=== PATIENT | male | born 1995 | race African-American/Black ===

== ENCOUNTER 2018-01-25 02:49 | Emergency (ER) | payer SELFPAY ==
[2018-01-25 02:54] VITALS: BP 147/90
[2018-01-25] MEDS ORDERED: KETOROLAC TROMETHAMINE 60 MG/2 ML SDV IM ONE (04:29)
--- NOTE | 2018-01-25 04:34 | ER Document Report ---
ED General - General Chief Complaint: Toothache Stated Complaint: TOOTHACHE Time Seen by Provider: 01/25/18 04:25 Mode of Arrival: Ambulatory Information source: Patient Notes: 22-year-old male presents emergency department with complaints of dental pain. He is having pain at tooth #32. Patient states that he has been having intermittent pain for months. Patient has not seen a dentist. Patient denies any trauma or injury. Patient denies any difficulty swallowing or difficulty opening his mouth. TRAVEL OUTSIDE OF THE [place] IN LAST 30 DAYS: No - HPI Onset/Duration: Gradual Quality of pain: Achy Severity: Mild Associated symptoms: None Exacerbated by: Denies Relieved by: Denies Similar symptoms previously: Yes Recently seen / treated by doctor: No - Related Data Allergies/Adverse Reactions: No Known Allergies Allergy (Verified 12/30/13 07:40) Past Medical History - General Information source: Patient - Social History Smoking Status: Current Every Day Smoker Chew tobacco use (# tins/day): No Frequency of alcohol use: None Drug Abuse: None Family History: None, Reviewed & Not Pertinent Patient has suicidal ideation: No Patient has homicidal ideation: No Renal/ Medical History: Denies: Hx Peritoneal Dialysis GI Medical History: Reports: Hx Gastroesophageal Reflux Disease - Immunizations Immunizations up to date: Yes Hx Diphtheria, Pertussis, Tetanus Vaccination: Yes Review of Systems - Review of Systems Constitutional: No symptoms reported EENT: Dental problem Cardiovascular: No symptoms reported Respiratory: No symptoms reported Gastrointestinal: No symptoms reported Genitourinary: No symptoms reported Male Genitourinary: No symptoms reported Musculoskeletal: No symptoms reported Skin: No symptoms reported Hematologic/Lymphatic: No symptoms reported Neurological/Psychological: No symptoms reported -: Yes All other systems reviewed and negative Physical Exam - Vital signs Vitals: Temp Pulse Resp BP Pulse Ox 98.2 F 62 16 147/90 H 99 01/25/18 02:53 01/25/18 02:53 01/25/18 02:53 01/25/18 02:53 01/25/18 02:53 Interpretation: Normal - Notes Notes: PHYSICAL EXAMINATION: GENERAL: Well-appearing, well-nourished and in no acute distress. HEAD: Atraumatic, normocephalic. EYES: Pupils equal round and reactive to light, extraocular movements intact, sclera anicteric, conjunctiva are normal. ENT: Nares patent, oropharynx clear without exudates. Moist mucous membranes. Dental tenderness to palpation of tooth number 32. No area of fluctuance. No trismus. NECK: Normal range of motion, supple without lymphadenopathy LUNGS: Breath sounds clear to auscultation bilaterally and equal. No wheezes rales or rhonchi. HEART: Regular rate and rhythm without murmurs ABDOMEN: Soft, nontender, nondistended abdomen. No guarding, no rebound. No masses appreciated. Musculoskeletal: Normal range of motion, no pitting or edema. No cyanosis. NEUROLOGICAL: Cranial nerves grossly intact. Normal speech, normal gait. Normal sensory, motor exams PSYCH: Normal mood, normal affect. SKIN: Warm, Dry, normal turgor, no rashes or lesions noted. Course - Vital Signs Vital signs: Temp Pulse Resp BP Pulse Ox 98.2 F 62 16 147/90 H 99 01/25/18 02:53 01/25/18 02:53 01/25/18 02:53 01/25/18 02:53 01/25/18 02:53 Discharge - Discharge Clinical Impression: Pain, dental Disposition: HOME, SELF-CARE Instructions: Penicillin V K ([facility]), Toothache ([facility]) Prescriptions: Penicillin V Potassium [Penicillin Vk 500 mg Tablet] 500 mg PO BID 10 Days #20 tablet Referrals: AMINATA MOROCHO MD [[facility]] - Follow up as needed
== END 2018-01-25 05:01 | disposition home or self-care (01) ==
LOC: ER 02:49
DX: K08.9 Disorder of teeth and supporting structures, unspecified (principal); F17.200 Nicotine dependence, unspecified, uncomplicated
CPT/HCPCS: 99282; 96372; J1885

== ENCOUNTER 2019-05-10 14:09 | Emergency (ER) | payer SELFPAY ==
--- NOTE | 2019-05-10 15:04 | ER Document Report ---
ED Medical Screen (RME) - General Chief Complaint: Foreign Body Stated Complaint: THUMB INJURY Time Seen by Provider: 05/10/19 15:01 Mode of Arrival: Ambulatory Information source: Patient Notes: 23-year-old male presented to ED for complaint of shooting a nail through his left thumb. He goes in at the fingernail comes out below the below the joint. His bleeding is under control at this time time. His tetanus is not up-to-date and will be done at this time. He states he does vape but not smoke. I have greeted and performed a rapid initial assessment of this patient. A comprehensive ED assessment and evaluation of the patient, analysis of test results and completion of medical decision making process will be conducted by an additional ED providers. TRAVEL OUTSIDE OF THE [place] IN LAST 30 DAYS: No - Related Data Allergies/Adverse Reactions: No Known Allergies Allergy (Verified 05/10/19 15:01) Past Medical History Renal/ Medical History: Denies: Hx Peritoneal Dialysis GI Medical History: Reports: Hx Gastroesophageal Reflux Disease - Immunizations Immunizations up to date: Yes Hx Diphtheria, Pertussis, Tetanus Vaccination: Yes Physical Exam - Vital signs Vitals: Temp Pulse Resp BP Pulse Ox 98.4 F 61 16 150/96 H 100 05/10/19 14:54 05/10/19 14:54 05/10/19 14:54 05/10/19 14:54 05/10/19 14:54 Course - Vital Signs Vital signs: Temp Pulse Resp BP Pulse Ox 98.4 F 61 16 150/96 H 100 05/10/19 14:54 05/10/19 14:54 05/10/19 14:54 05/10/19 14:54 05/10/19 14:54
[2019-05-10 15:38] LABS: ABSOLUTE LYMPHOCYTES (AUTO) 1.5 10^3/uL (0.5-4.7); ABSOLUTE MONOCYTES (AUTO) 0.4 10^3/uL (0.1-1.4); ABSOLUTE NEUT (AUTO) 3.4 10^3/uL (1.7-8.2); BASOPHILS % (AUTO) 0.3 % (0-2); EOSINOPHILS % (AUTO) 0.4 % (0-6); HEMATOCRIT 42.9 % (37.9-51.0); HEMOGLOBIN 14.4 g/dL (13.5-17.0); LYMPHOCYTES % (AUTO) 28.7 % (13-45); MEAN CORPUSCULAR HEMOGLOBIN 28.8 pg (27.0-33.4); MEAN CORPUSCULAR HGB CONC 33.5 g/dL (32.0-36.0); MEAN CORPUSCULAR VOLUME 86 fl (80-97); MONOCYTES % (AUTO) 7.3 % (3-13); PLATELET COUNT 311 10^3/uL (150-450); RED CELL DISTRIBUTION WIDTH 13.7 % (11.5-14.0); SEGMENTED NEUTROPHILS % (AUTO) 63.3 % (42-78); TOTAL CELLS COUNTED % (AUTO) 100 %; WHITE BLOOD COUNT 5.4 10^3/uL (4.0-10.5)
[2019-05-10 16:08] LABS: ALBUMIN 4.6 g/dL (3.5-5.0); ALKALINE PHOSPHATASE 56 U/L (38-126); ANION GAP 9 (5-19); ASPARTATE AMINO TRANSFERASE 21 U/L (17-59); BILIRUBIN,TOTAL 0.3 mg/dL (0.2-1.3); BLOOD UREA NITROGEN 16 mg/dL (7-20); CALCIUM 9.9 mg/dL (8.4-10.2); CARBON DIOXIDE 29 mmol/L (22-30); CHLORIDE 100 mmol/L (98-107); GLUCOSE 86 mg/dL (75-110); POTASSIUM 4.2 mmol/L (3.6-5.0); TOTAL PROTEIN 7.8 g/dL (6.3-8.2)
--- NOTE | 2019-05-10 17:32 | RADIOLOGY REPORT (SQ) ---
EXAM DESCRIPTION: FINGER LEFT COMPLETED DATE/TIME: 05/10/2019 3:35 pm REASON FOR STUDY: Nail through the nail through the joint. COMPARISON: None. NUMBER OF VIEWS: Three views. TECHNIQUE: AP, lateral, and oblique images acquired of the left thumb. LIMITATIONS: None. FINDINGS: MINERALIZATION: Normal. BONES: There is a 2.5 cm metallic object through the 1st distal phalanx. There is no associated disl ocation. SOFT TISSUES: No soft tissue swelling. OTHER: No other finding. IMPRESSION: 2.5 cm metallic object through the 1st distal phalanx. TECHNICAL DOCUMENTATION: JOB ID: [id number] All Rights Reserved Reading location - IP/workstation name: [email or web address]
[2019-05-10 19:34] VITALS: BP 142/68
[2019-05-10] MEDS ORDERED: LIDOCAINE 1% INJ (10 MG/ML) 10 ML MDV INJ ONE (20:37)
[2019-05-10] MEDS ORDERED: AMOXICILLIN TR/POT CLAVULANATE 500-125 MG TAB PO ONE (20:37)
[2019-05-10] MEDS ORDERED: AMOXICILLIN TRIHYDRATE 500 MG CAPSULE PO ONE (20:37)
[2019-05-10] MEDS ORDERED: DIPH/PERTUSS(ACELL)/TETANUS VAC/PF 0.5 ML SYR (>=10YO) IM ONE (20:38)
[2019-05-10] MEDS ORDERED: BUPIVACAINE HCL 0.5 % INJ/PF 30 ML SDV INJ ONE (20:38)
--- NOTE | 2019-05-10 20:39 | ER Document Report ---
ED Foreign Body - General Chief Complaint: Thumb Injury Stated Complaint: THUMB INJURY Time Seen by Provider: 05/10/19 15:01 Mode of Arrival: Ambulatory Notes: Patient is a 23-year-old male that comes emergency department for chief complaint of accidentally shooting a nail through his left thumb, the nail entered through the middle of the fingernail and extending down into the thumb without it coming out the other side. His tetanus is not up-to-date. He denies any other injuries or complaints, he denies any past medical history. TRAVEL OUTSIDE OF THE [place] IN LAST 30 DAYS: No - Related Data Allergies/Adverse Reactions: No Known Allergies Allergy (Verified 05/10/19 15:01) Past Medical History - General Information source: Patient - Social History Smoking Status: Never Smoker Frequency of alcohol use: Rare Drug Abuse: None Lives with: Family Family History: None, Reviewed & Not Pertinent Patient has suicidal ideation: No Patient has homicidal ideation: No Renal/ Medical History: Denies: Hx Peritoneal Dialysis GI Medical History: Reports: Hx Gastroesophageal Reflux Disease Surgical Hx: Negative - Immunizations Immunizations up to date: Yes Hx Diphtheria, Pertussis, Tetanus Vaccination: Yes Review of Systems - Review of Systems Constitutional: No symptoms reported EENT: No symptoms reported Cardiovascular: No symptoms reported Respiratory: No symptoms reported Gastrointestinal: No symptoms reported Genitourinary: No symptoms reported Male Genitourinary: No symptoms reported Musculoskeletal: See HPI Skin: No symptoms reported Hematologic/Lymphatic: No symptoms reported Neurological/Psychological: No symptoms reported Physical Exam - Vital signs Vitals: Temp Pulse Resp BP Pulse Ox 98.4 F 61 16 150/96 H 100 05/10/19 14:54 05/10/19 14:54 05/10/19 14:54 05/10/19 14:54 05/10/19 14:54 - Notes Notes: GENERAL: Alert, interacts well. No acute distress. HEAD: Normocephalic, atraumatic. EYES: Pupils equal, round, and reactive to light. Extraocular movements intact. ENT: Oral mucosa moist, tongue midline. Oropharynx unremarkable. Airway patent. LUNGS: Clear to auscultation bilaterally, no wheezes, rales, or rhonchi. No respiratory distress. HEART: Regular rate and rhythm. No murmur ABDOMEN: Soft, non-tender. Non-distended. EXTREMITIES: Right thumb with puncture wound with the head of a small nail sticking out in the middle of the right thumbnail, there is an abrasion over the DIP as well, I can feel a foreign body along the medial aspect of the thumb along the side which is moderately superficial. Patient still has range of motion of the thumb surprisingly, normal sensation and capillary refill, normal hand exam otherwise. BACK: no cervical, thoracic, lumbar midline tenderness. No saddle anesthesia, normal distal neurovascular exam. NEUROLOGICAL: Alert and oriented x3. Normal speech. Cranial nerves II through XII grossly intact. PSYCH: Normal affect, normal mood. SKIN: Warm, dry, normal turgor. No rashes or lesions noted. Course - Re-evaluation Re-evalutation: X-ray showing superficial nail in the thumb without bony involvement. The nail is sticking out of the right thumbnail, there is an abrasion over the top of the thumb, the nail is embedded into the thumb otherwise. I did discuss with Dr. Carrington. Decision was made after discussion with patient to perform digital block and attempt to remove the nail. Patient was given Augmentin. I did have to cut the tip of the nail up to the area where the nail is embedded into the thumbnail using scissors after digital block was performed and thorough cleansing was performed. After this was performed I was able to get underneath the nail and I was able to remove the nail and one smooth motion. This was examined carefully and there was no evidence of broken nail or retained foreign body. Patient was placed on Augmentin for home, tetanus was updated, discussed wound care, follow-up, and strict return precautions. Discussed again with Dr. Carrington. Patient states appreciation and agreement. - Vital Signs Vital signs: Temp Pulse Resp BP Pulse Ox 98.0 F 72 18 142/68 H 100 05/10/19 19:27 05/10/19 19:27 05/10/19 19:27 05/10/19 19:27 05/10/19 19:27 - Laboratory Result Diagrams: 05/10/19 15:20 05/10/19 15:20 Procedures - Additional Procedures Right thumb foreign body removal Additional Procedures: Other - Right thumb was cleaned thoroughly with Keyon Cleearlene, digital block performed using a total of 6 cc of lidocaine and bupivacaine with excellent results. Unable to pull out the nail because I could not get a good hold on the nail, I had to trim the thumbnail from the edge of the nail up to the middle of the nail in a linear fashion so I could get underneath of the embedded foreign body, grasped with needle drivers, and pull out and once with motion. This was examined and intact without any evidence of break, this indicates there is no retained foreign body now. Patient tolerated this very well. Normal exam otherwise. Cleaned and dressed. Discharge - Discharge Clinical Impression: Foreign body of finger Condition: Stable Disposition: HOME, SELF-CARE Additional Instructions: The foreign body has been removed. Keep area clean, clean with soap and water, apply topical antibiotic to the area. Take antibiotic as prescribed to completion. I recommend [id number] probiotic to avoid diarrhea while taking this. Follow-up with primary care. Return for any signs of infection including developing pain, redness, swelling, discolored discharge, fever, or any other concerning symptoms. Prescriptions: Amox Tr/Potassium Clavulanate [Augmentin 875-125 Tablet] 1 tab PO BID 7 Days #14 tablet Forms: Return to Work
[2019-05-10] MEDS ORDERED: LIDOCAINE 1% INJ-PF (10 MG/ML) 30 ML SDV ONE (20:46)
== END 2019-05-10 22:59 | disposition home or self-care (01) ==
LOC: ER 14:09
DX: S61.141A Puncture wound with foreign body of right thumb with damage to nail, initial encounter (principal); W29.4XXA Contact with nail gun, initial encounter; Z23 Encounter for immunization
CPT/HCPCS: 36415; 85025; 80053; 73140; 90715; 64450; J3490